=== PATIENT | female | born 1955 | race Caucasian/White ===

== ENCOUNTER 2017-12-21 14:43 | Emergency (ER) | payer OTHER ==
[2017-12-21 14:56] VITALS: BP 139/100; PULSE 54; TEMP 98; BMI 27.4
[2017-12-21] MEDS ORDERED: RANITIDINE HCL 150 MG TABLET (FP) PO ONE (15:53)
[2017-12-21] MEDS ORDERED: KETOROLAC TROMETHAMINE 60 MG/2 ML VIAL IM ONE (15:53)
--- NOTE | 2017-12-21 15:56 | PDOC ---
History of Present Illness - General Chief Complaint: Pain Stated Complaint: LEFT SIDE PAIN - History of Present Illness Initial Comments: 62-year-old female with 1 week of atraumatic lower back pain with left leg radiculopathy. She has no comorbidities. She is taking doxycycline for Lyme disease. She denies loss of bowel or bladder function or saddle paresthesia. She describes her pain is achy exacerbated with activity relieved with rest and with the above-mentioned radiation. 12/21/17 15:53 Past History - Past Medical History Allergies/Adverse Reactions: Allergies Allergy/AdvReac Type Severity Reaction Status Date / Time morphine Allergy Verified 12/21/17 15:02 Home Medications: Ambulatory Orders Cyclobenzaprine HCl [Flexeril 10 mg] 10 mg PO HS PRN #10 tablet 12/21/17 Methylprednisolone [Medrol Dose Ministerio] 4 mg PO ASDIR #21 tablet 12/21/17 Anemia: No Asthma: Yes Cancer: No Cardiac Disorders: No CVA: No COPD: No DVT: No Dementia: No GI Disorders: Yes (GASTRITIS-H. PYLORI) HTN: Yes Hypercholesterolemia: No Liver Disease: No Thyroid Disease: No Other medical history: lyme disease - Surgical History Abdominal Surgery: Yes (hernia) Appendectomy: No Cardiac Surgery: Yes (angiogram) Cholecystectomy: No Lung Surgery: No Neurologic Surgery: No Orthopedic Surgery: Yes (ROTATOR CUFF) - Suicide/Smoking/Psychosocial Hx Smoking Status: No Smoking History: Never smoked Have you smoked in the past 12 months: No Number of Cigarettes Smoked Daily: 0 Information on smoking cessation initiated: No Hx Alcohol Use: No Drug/Substance Use Hx: No Substance Use Type: None Hx Substance Use Treatment: No Review of Systems - Review of Systems Musculoskeletal: Yes: Back Pain All Other Systems: Reviewed and Negative *Physical Exam - Vital Signs Last Vital Signs Temp Pulse Resp BP Pulse Ox 98.0 F 54 L 18 139/100 100 12/21/17 14:54 12/21/17 14:54 12/21/17 14:54 12/21/17 14:54 12/21/17 14:54 - Physical Exam Comments: Lumbar spine skin color and temperature are normal. She has moderate left-sided paralumbar musculature spasm. 5 out of 5 strength in lower extremities including EHL plantar flexion and dorsiflexion. As well as hip flexion. She has a positive straight leg raise test on the left negative on the right. She has no gross sensorimotor deficits she's neurovascularly intact. 12/21/17 15:54 Medical Decision Making - Medical Decision Making Lumbar radiculopathy I'll give her a shot of Toradol and Zantac to treat her pain. An most likely discharge her on a Medrol Dosepak and Flexeril with spine surgery follow-up. No trauma I will hold off on radiograph. 12/21/17 15:55 12/21/17 16:11 Symptoms relieved with Toradol I'll give her Medrol Dosepak and Flexeril for discharge and spine surgery follow-up *DC/Admit/Observation/Transfer Diagnosis at time of Disposition: Lumbar radiculopathy - Discharge Dispostion Disposition: HOME Condition at time of disposition: Improved Decision to Admit order: No - Referrals Referrals: Geovany Ingram MD [Primary Care Provider] - Chan Priest MD [Staff Physician] - - Patient Instructions Printed Discharge Instructions: Lumbar Radiculopathy, DI for Lumbar Radiculopathy Additional Instructions: Return to the emergency room should her symptoms worsen or go unresolved. Please take the steroid pack as prescribed. It's best to start tomorrow morning. The muscle relaxer will make you tired it's one tablet before bedtime. Please follow-up with spine surgery in the next 1-2 days for further evaluation and treatment options. He may continue doxycycline and if she needs something more for pain you may take Tylenol do not take any Advil Motrin and Aleve or ibuprofen. - Post Discharge Activity
[2017-12-21] MEDS ORDERED: KETOROLAC TROMETHAMINE 60 MG/2 ML VIAL ONE (15:59)
[2017-12-21] MEDS ORDERED: RANITIDINE HCL 150 MG TABLET (FP) ONE (15:59)
== END 2017-12-21 16:19 | disposition home or self-care (01) ==
LOC: JERFT 14:43
PROC: 3E0233Z Introduction of Anti-inflammatory into Muscle, Percutaneous Approach (ICD-10-PCS; principal; 2017-12-21)
DX: M54.16 Radiculopathy, lumbar region (principal); Z87.19 Personal history of other diseases of the digestive system
CPT/HCPCS: 96372; 99281-25

== ENCOUNTER 2018-05-14 06:57 | Emergency (ER) | payer OTHER ==
--- NOTE | 2018-05-14 07:21 | PDOC ---
Attending Attestation - Resident Resident Name: Marie Roberts - ED Attending Attestation I have performed the following: I have examined & evaluated the patient, The case was reviewed & discussed with the resident, I agree w/resident's findings & plan, Exceptions are as noted - HPI HPI: 05/14/18 07:58 63y F hx of asthma, hpylori, presents with 3 days of nasal congestion, cough, muscle aches, sore throat, headache and generalized weakness. denies fevers, cp , sob/[place], abd pain, n/v, leg swelling, hemoptysis. +grandson with similar sypmtoms. no recent travel. - Physicial Exam PE: 05/14/18 09:47 GENERAL: The patient is awake, alert, and fully oriented, Nontoxic - in no acute distress. HEAD: Normocephalic, atraumatic. EYES: extraocular movements intact, sclera anicteric, conjunctiva clear. ENT: Normal voice, Moist mucous membranes. NECK: Normal range of motion, supple LUNGS: Breath sounds equal, clear to auscultation bilaterally. No wheezes, no rhonchi, no rales, inermittent paraxysms of coughing. HEART: Regular rate and rhythm, normal S1 and S2 without murmur, rub or gallop. ABDOMEN: Soft, nontender,No guarding, no rebound. No CVA tenderness EXTREMITIES: Normal range of motion, no edema. No clubbing or cyanosis. No cords, erythema, or tenderness. NEUROLOGICAL: No facial assymetry, Normal speech, moving all 4 extremities spontaneously and symmetrically PSYCH: Normal mood, normal affect. SKIN: Warm, Dry, normal turgor - Medical Decision Making 05/14/18 10:01 suspect viral syndrome no signs of pna on cxr ekg unremarkble no wheezing pt feels better with nebs xray, labs unremarkable wlil dc with pmd fu retur nprecautions were discussed I discussed the physical exam findings, ancillary test results and final diagnoses with the patient. I answered all of the patient's questions. The patient was satisfied with the care received and felt comfortable with the discharge plan and treatment plan. The patient will call their primary care physician within 24 hours to arrange follow-up and will return to the Emergency Department with any new, persistent or worsening symptoms. Heart Score/ECG Review - ECG Impressions Comment:: 05/14/18 10:02 Twelve-lead EKG was performed and reviewed by me. There is normal sinus rhythm with a rate of 58 The intervals are normal. There is normal R wave progression There are no ST or T wave abnormalities.
[2018-05-14 07:36] VITALS: BP 110/45; TEMP 98.3; BMI 27.2
[2018-05-14] MEDS ORDERED: ALBUTEROL SO4 2.5/IPRATROPIUM 0.5 INH SOL 3 ML VIAL.NEB. NEB ONE ×2 (07:43→07:51)
--- NOTE | 2018-05-14 07:47 | PDOC ---
History of Present Illness - General Chief Complaint: Respiratory Stated Complaint: SOB Time Seen by Provider: 05/14/18 07:21 History Source: Patient Exam Limitations: No Limitations - History of Present Illness Initial Comments: 05/14/18 07:46 63F with pmh of asthma, presents to the ED with constant dry cough, chills, difficulty breathing for the past 3 days. Also admits to be feeling weak, has a headache and that her muscles are aching. Did not get vaccinated for the flu as she felt sick the last time she did that. Past History - Past Medical History Allergies/Adverse Reactions: Allergies Allergy/AdvReac Type Severity Reaction Status Date / Time morphine Allergy Verified 05/14/18 07:32 Home Medications: Ambulatory Orders Albuterol 0.083% Nebulizer Anjana [Ventolin 0.083% Nebulizer Soln -] 1 amp NEB PRN #5 amp 05/14/18 Anemia: No Asthma: Yes Cancer: No Cardiac Disorders: No CVA: No COPD: No DVT: No Dementia: No GI Disorders: Yes (GASTRITIS-H. PYLORI) HTN: Yes Hypercholesterolemia: No Liver Disease: No Thyroid Disease: No - Surgical History Abdominal Surgery: Yes (hernia) Appendectomy: No Cardiac Surgery: Yes (angiogram) Cholecystectomy: No Lung Surgery: No Neurologic Surgery: No Orthopedic Surgery: Yes (ROTATOR CUFF) - Suicide/Smoking/Psychosocial Hx Smoking Status: No Smoking History: Never smoked Have you smoked in the past 12 months: No Number of Cigarettes Smoked Daily: 0 Hx Alcohol Use: No Drug/Substance Use Hx: No Substance Use Type: None Hx Substance Use Treatment: No Review of Systems - Review of Systems Able to Perform ROS?: Yes Is the patient limited Grenadian proficient: No Constitutional: Yes: Chills HEENTM: No: Symptoms Reported Respiratory: Yes: See HPI Cardiac (ROS): No: Symptoms Reported ABD/GI: No: Symptoms Reported : No: Symptoms Reported Musculoskeletal: Yes: Muscle Pain, Muscle Weakness All Other Systems: Reviewed and Negative *Physical Exam - Vital Signs Last Vital Signs Temp Pulse Resp BP Pulse Ox 98.3 F 53 L 19 110/45 L 98 05/14/18 07:32 05/14/18 07:32 05/14/18 07:32 05/14/18 07:32 05/14/18 07:32 - Physical Exam General Appearance: Yes: Nourished, Appropriately Dressed, Moderate Distress HEENT: positive: EOMI, YAEL, Normal ENT Inspection Respiratory/Chest: positive: Crackles. negative: Chest Tender, Respiratory Distress, Wheezing Cardiovascular: positive: Regular Rate, S1, S2, Bradycardia Gastrointestinal/Abdominal: positive: Normal Bowel Sounds, Flat, Soft. negative : Tender Musculoskeletal: positive: Normal Inspection. negative: CVA Tenderness Extremity: positive: Normal Capillary Refill, Normal Inspection, Normal Range of Motion Integumentary: positive: Normal Color, Dry, Warm Neurologic: positive: Fully Oriented, Alert, Normal Mood/Affect, Normal Response ED Treatment Course - LABORATORY CBC & Chemistry Diagram: 05/14/18 08:25 05/14/18 08:25 - RADIOLOGY Radiology Studies Ordered: Category Date Time Status CHEST PA & LAT [RAD] Stat Radiology 05/14/18 07:44 Ordered Medical Decision Making - Medical Decision Making 05/14/18 08:16 63F with hx of asthma and pneumonia presents with 3 days of dry cough, weakness , and muscle aches. Influenza vs pneumonia vs URI Will check basic labs for signs of infection, chest xray, flu swab to evaluate for lung consolidation and treat with Duoneb and O2 and reevaluate. 05/14/18 09:28 No acute chest pathology on xray. Less likely to be pneumonia, probably viral lower respiratory infection. 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 Will treat symptomatically. 05/14/18 09:45 Negative for flu. Felles much better after duoneb. Will send home with albuterol Rx as she has the nebulizer machine *DC/Admit/Observation/Transfer Diagnosis at time of Disposition: Viral respiratory illness, Viral URI with cough - Discharge Dispostion Disposition: HOME Condition at time of disposition: Improved Decision to Admit order: No - Prescriptions Prescriptions: Albuterol 0.083% Nebulizer Anjana [Ventolin 0.083% Nebulizer Soln -] 1 amp NEB PRN #5 amp - Referrals Referrals: Geovany Ingram MD [Primary Care Provider] - - Patient Instructions Printed Discharge Instructions: DI for Viral Upper Respiratory Infection -- Adult Additional Instructions: 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 Come back to the ER for any new, worsening or concerning symptoms such as fever or difficulty breathing. - Post Discharge Activity
[2018-05-14] MEDS ORDERED: IBUPROFEN 600 MG TABLET (FP) PO ONE ×2 (08:25→08:34)
[2018-05-14 08:34] LABS: BASO % 0.8 % (0-2.0); EOS % 1.3 % (0-4.5); HEMATOCRIT 41.2 % (32.4-45.2); HEMOGLOBIN 13.4 GM/dL (10.7-15.3); LYMPH % 9.9 % (8-40); MCH 30.2 pg (25.7-33.7); MCHC 32.4 g/dl (32.0-36.0); MEAN CELL VOLUME 93.1 fl (80-96); MONO % 6.3 % (3.8-10.2); NEUT % 81.7 % (42.8-82.8); PLATELET COUNT 172 K/MM3 (134-434); RBC 4.43 M/mm3 (3.60-5.2); RDW 13.4 % (11.6-15.6); WHITE BLOOD COUNT 8.9 K/mm3 (4.0-10.0)
[2018-05-14 09:19] LABS: ALBUMIN 3.7 g/dl (3.4-5.0); ALK PHOS 84 U/L (45-117); ANION GAP 6 MMOL/L (8-16); BILIRUBIN,TOTAL 0.5 mg/dL (0.2-1); BLOOD UREA NITROGEN 11 mg/dL (7-18); CALCIUM 10.8 mg/dL (8.5-10.1); CHLORIDE 106 mmol/L (98-107); CO2 27 mmol/L (21-32); CREATININE 0.7 mg/dL (0.55-1.3); GLUCOSE,RANDOM 85 mg/dL (74-106); POTASSIUM 3.9 mmol/L (3.5-5.1); SGOT/AST 12 U/L (15-37); SGPT/ALT 22 U/L (13-61); SODIUM 139 mmol/L (136-145); TOT PROT 6.9 g/dl (6.4-8.2)
[2018-05-14 09:57] VITALS: PULSE 60
--- NOTE | 2018-05-17 23:49 | EKG ---
Test Reason : Blood Pressure : / mmHG Vent. Rate : 058 BPM Atrial Rate : 058 BPM P-R Int : 166 ms QRS Dur : 104 ms QT Int : 392 ms P-R-T Axes : 015 -11 034 degrees QTc Int : 384 ms SINUS BRADYCARDIA MINIMAL VOLTAGE CRITERIA FOR LVH, MAY BE NORMAL VARIANT NONSPECIFIC T WAVE ABNORMALITY ABNORMAL ECG WHEN COMPARED WITH ECG OF 09-MAY-2016 19:43, VENT. RATE HAS DECREASED BY 28 BPM T WAVE VARIATION Confirmed by JOSE SERRATO MD ([id number]) on 05/17/2018 11:49:27 PM Referred By: Confirmed By:JOSE SERRATO MD
== END 2018-05-14 09:57 | disposition home or self-care (01) ==
LOC: JER 06:57
PROC: 3E0F7GC Introduction of Other Therapeutic Substance into Respiratory Tract, Via Natural or Artificial Opening (ICD-10-PCS; principal; 2018-05-14)
DX: J06.9 Acute upper respiratory infection, unspecified (principal); B97.89 Other viral agents as the cause of diseases classified elsewhere; R05 Cough; I10 Essential (primary) hypertension; K29.70 Gastritis, unspecified, without bleeding
CPT/HCPCS: 36415; 71046-TC-FY; 80053; 85025; 87804; 93005; 93010; 94640; 99282-25

== ENCOUNTER 2018-07-07 18:03 | Inpatient (IN) | payer OTHER ==
[2018-07-07 19:12] LABS: BASO % 0.5 % (0-2.0); HEMOGLOBIN 13.5 GM/dL (10.7-15.3); LYMPH % 7.7 % (8-40); MCH 31.8 pg (25.7-33.7); MCHC 34.7 g/dl (32.0-36.0); MEAN CELL VOLUME 91.5 fl (80-96); MONO % 10.4 % (3.8-10.2); NEUT % 81.4 % (42.8-82.8); PLATELET COUNT 200 K/MM3 (134-434); RBC 4.26 M/mm3 (3.60-5.2); RDW 13.6 % (11.6-15.6); WHITE BLOOD COUNT 5.9 K/mm3 (4.0-10.0)
[2018-07-07] MEDS ORDERED: ALBUTEROL SO4 2.5/IPRATROPIUM 0.5 INH SOL 3 ML VIAL.NEB. NEB ONE (19:19)
[2018-07-07] MEDS ORDERED: ACETAMINOPHEN 1000 MG/100 ML VIAL (NON FORMULARY) IVPB ONE (19:19)
[2018-07-07] MEDS ORDERED: SODIUM CHLORIDE 1,000 ML IV STA ×2 (19:25→21:55)
--- NOTE | 2018-07-07 19:38 | PDOC ---
Attending Attestation - HPI HPI: 07/07/18 19:42 The patient is a 63 year old female with a significant past medical history of asthma, hypertension and H.pylori who presents to the emergency department with a cough and fever for 2 days. She reports some associated chest pain with her cough as well as shortness of breath. The patient reports that she recently traveled to [place] for 2 weeks by which she was exposed to several sick contacts at her home. The patient reports that she got back from [place] today. She states that her cough and SOB began prior to her flight.The patient denies any other symptoms. She denies any chills, nausea, vomiting, diarrhea, constipation or urinary symptoms. She denies any headache or dizziness. The patient denies any other complaints. Documentation prepared by Zack Chairez, acting as medical registrar for Rancho Escalante MD. <Zack Chairez - Last Filed: 07/07/18 19:42> - Resident Resident Name: Marco Moid - ED Attending Attestation I have performed the following: I have examined & evaluated the patient, The case was reviewed & discussed with the resident, I agree w/resident's findings & plan, Exceptions are as noted - Physicial Exam PE: 07/08/18 05:05 Agree with exam as documented by resident - Medical Decision Making 07/08/18 05:21 Cough, fever, flu+ cxr w/o infiltrates fluid responsive admit for further care <Rancho Escalante - Last Filed: 07/08/18 05:22>
--- NOTE | 2018-07-07 19:40 | PDOC ---
History of Present Illness - General Chief Complaint: Respiratory Stated Complaint: COLD SYMPTOMS Time Seen by Provider: 07/07/18 19:07 History Source: Patient Exam Limitations: No Limitations - History of Present Illness Initial Comments: 07/07/18 19:34 Patient is 63F with history of asthma here today complaining of 2 days of fever , cough, shortness of breath and pleuritic chest pain. Patient states that she returned from [place] today, and had multiple sick contacts in [place]. Denies leg swelling, recent surgery, history of blood clots. No flu shot this year. No abdominal pain, nausea, vomiting. Patient endorses body aches and rhinorrhea. Past History - Past Medical History Allergies/Adverse Reactions: Allergies Allergy/AdvReac Type Severity Reaction Status Date / Time morphine Allergy Verified 07/07/18 18:20 Home Medications: Ambulatory Orders Albuterol 0.083% Nebulizer Anjana [Ventolin 0.083% Nebulizer Soln -] 1 amp NEB PRN #5 amp 05/14/18 Anemia: No Asthma: Yes Cancer: No Cardiac Disorders: No CVA: No COPD: No DVT: No Dementia: No GI Disorders: Yes (GASTRITIS-H. PYLORI) HTN: Yes Hypercholesterolemia: No Liver Disease: No Thyroid Disease: No - Surgical History Abdominal Surgery: Yes (hernia) Appendectomy: No Cardiac Surgery: Yes (angiogram) Cholecystectomy: No Lung Surgery: No Neurologic Surgery: No Orthopedic Surgery: Yes (ROTATOR CUFF) - Suicide/Smoking/Psychosocial Hx Smoking Status: No Smoking History: Unknown if ever smoked Have you smoked in the past 12 months: No Number of Cigarettes Smoked Daily: 0 Hx Alcohol Use: No Drug/Substance Use Hx: No Substance Use Type: None Hx Substance Use Treatment: No Review of Systems - Review of Systems Comments:: 07/07/18 19:38 GENERAL/CONSTITUTIONAL: +fever +chills. No weakness. HEAD, EYES, EARS, NOSE AND THROAT: No change in vision. No sore throat. CARDIOVASCULAR: +chest pain +shortness of breath RESPIRATORY: +cough, no wheezing, or hemoptysis. GASTROINTESTINAL: No nausea, vomiting, diarrhea or constipation. GENITOURINARY: No dysuria, frequency, or change in urination. MUSCULOSKELETAL: +bodyaches. No neck or back pain. SKIN: No rash NEUROLOGIC: No headache, vertigo, loss of consciousness, or change in strength/ sensation. HEMATOLOGIC/LYMPHATIC: No anemia, easy bleeding, or history of blood clots. ALLERGIC/IMMUNOLOGIC: No hives or skin allergy. *Physical Exam - Vital Signs Last Vital Signs Temp Pulse Resp BP Pulse Ox 102.6 F H 100 H 26 H 130/70 100 07/07/18 18:20 07/07/18 18:20 07/07/18 18:20 07/07/18 18:20 07/07/18 18:20 - Physical Exam Comments: 07/07/18 19:39 GENERAL: Awake, alert, and fully oriented, in no acute distress HEAD: No signs of trauma, normocephalic, atraumatic EYES: PERRLA, EOMI, sclera anicteric, conjunctiva clear ENT: Auricles normal inspection, hearing grossly normal, nares patent, oropharynx clear without exudates. Moist mucosa NECK: Normal ROM, supple, no lymphadenopathy, JVD, or masses LUNGS: No distress, speaks full sentences, coarse breath sounds bilaterally HEART: Tachycardic normal S1 and S2, no murmurs, rubs or gallops, peripheral pulses normal and equal bilaterally. ABDOMEN: Soft, nontender, normoactive bowel sounds. No guarding, no rebound. No masses EXTREMITIES: Normal inspection, Normal range of motion, no edema. No clubbing or cyanosis. NEUROLOGICAL: Cranial nerves II through XII grossly intact. Normal speech, no focal sensorimotor deficits SKIN: Warm, Dry, normal turgor, no rashes or lesions noted. Moderate Sedation - Procedure Monitoring Vital Signs: Procedure Monitoring Vital Signs Temperature 102.6 F H 07/07/18 18:20 Pulse Rate 100 H 07/07/18 18:20 Respiratory Rate 26 H 07/07/18 18:20 Blood Pressure 130/70 07/07/18 18:20 O2 Sat by Pulse Oximetry (%) 100 07/07/18 18:20 ED Treatment Course - LABORATORY CBC & Chemistry Diagram: 07/07/18 19:00 07/07/18 19:00 - ADDITIONAL ORDERS Additional order review: 07/07/18 19:00 RBC 4.26 MCV 91.5 MCHC 34.7 RDW 13.6 MPV 9.0 Neutrophils % 81.4 Lymphocytes % 7.7 L D Monocytes % 10.4 H Eosinophils % 0.0 D Basophils % 0.5 - RADIOLOGY Radiology Studies Ordered: Category Date Time Status CHEST X-RAY PORTABLE* [RAD] Stat Radiology 07/07/18 19:17 Ordered Medical Decision Making - Medical Decision Making 07/07/18 19:40 Patient is 63F with history of asthma here today with cough, shortness of breath , fever, chest pain. Vital signs notable for tachycardia, fever, tachypnea. Coarse lung sounds on exam bilaterally. DDx includes, but is not limited to: pneumonia, influenza, viral uri. Septic workup initiated. Likely admission. Given tylenol, fluids. 07/07/18 22:01 Flu positive. CBC normal. CMP normal. Trop undetectable. Lactate normal. CXR shows no clear infiltrate. Patient's BP shows map of 63, had not received first liter of fluids due to patient's arm position. Second line started. Will fluid resuscitated. Still febrile, will give motrin. Will cover with azithro and ceftriaxone given hypotension. Will admit. 07/07/18 22:40 BP shows MAP of [address] Edwards accepting for Dr Rockwell to med/surg. 07/07/18 23:45 EKG shows NSR with rate of 84. No st elevations/depressions. Normal axis. Normal intervals. No significant t wave abnormalities. *DC/Admit/Observation/Transfer Diagnosis at time of Disposition: Pneumonia and influenza - Discharge Dispostion Condition at time of disposition: Stable Decision to Admit order: Yes - Referrals - Patient Instructions - Post Discharge Activity
[2018-07-07 19:45] LABS: VENOUS PC02 38.3 mmHg (38-52); VENOUS PH 7.44 (7.32-7.42); VENOUS PO2 24.1 mmHg (28-48)
[2018-07-07 19:58] LABS: ACTIVATED PTT 23.6 SECONDS (25.2-36.5); INR 1.09 (0.83-1.09); PROTHROMBIN TIME (PATIENT) 12.9 SEC (9.7-13.0)
[2018-07-07 20:07] LABS: ALBUMIN 3.9 g/dl (3.4-5.0); ALK PHOS 102 U/L (45-117); ANION GAP 10 MMOL/L (8-16); BILIRUBIN,TOTAL 0.3 mg/dL (0.2-1); BLOOD UREA NITROGEN 13 mg/dL (7-18); CHLORIDE 104 mmol/L (98-107); CO2 25 mmol/L (21-32); CREATININE 0.8 mg/dL (0.55-1.3); GLUCOSE,RANDOM 81 mg/dL (74-106); SGOT/AST 37 U/L (15-37); SGPT/ALT 51 U/L (13-61); SODIUM 138 mmol/L (136-145); TOT PROT 7.3 g/dl (6.4-8.2)
[2018-07-07] MEDS ORDERED: ACETAMINOPHEN INJECTION 100 ML IVPB ONE (20:17)
[2018-07-07] MEDS ORDERED: OSELTAMIVIR PHOSPHATE 75 MG CAPSULE PO ONE (21:31)
[2018-07-07] MEDS ORDERED: IBUPROFEN 600 MG TABLET (FP) PO ONE (21:55)
[2018-07-07] MEDS ORDERED: AZITHROMYCIN IVPB 500 MG in DEXTROSE 5%-WATER - 250 ML IVPB ONE (21:59)
[2018-07-07] MEDS ORDERED: CEFTRIAXONE 1,000 MG in DEXTROSE 5%-WATER - 50 ML IVPB ONE (21:59)
--- NOTE | 2018-07-07 23:02 | PN ---
Teaching Attending Note Name of Resident: Toro Edwards ATTENDING PHYSICIAN STATEMENT I saw and evaluated the patient. I reviewed the resident's note and discussed the case with the resident. I agree with the resident's findings and plan as documented. SUBJECTIVE: OBJECTIVE: ASSESSMENT AND PLAN:
--- NOTE | 2018-07-07 23:03 | HP ---
CHIEF COMPLAINT: PCP: HISTORY OF PRESENT ILLNESS: ER course was notable for: (1) (2) (3) Recent Travel: PAST MEDICAL HISTORY: PAST SURGICAL HISTORY: Social History: Smoking: Alcohol: Drugs: Family History: Allergies morphine Allergy (Verified 07/07/18 18:20) HOME MEDICATIONS: Home Medications Medication Instructions Recorded Albuterol 0.083% Nebulizer Anjana 1 amp NEB PRN #5 amp 05/14/18 [Ventolin 0.083% Nebulizer Soln -] REVIEW OF SYSTEMS CONSTITUTIONAL: Absent: fever, chills, diaphoresis, generalized weakness, malaise, loss of appetite, weight change HEENT: Absent: rhinorrhea, nasal congestion, throat pain, throat swelling, difficulty swallowing, mouth swelling, ear pain, eye pain, visual changes CARDIOVASCULAR: Absent: chest pain, syncope, palpitations, irregular heart rate, lightheadedness , peripheral edema RESPIRATORY: Absent: cough, shortness of breath, dyspnea with exertion, orthopnea, wheezing, stridor, hemoptysis GASTROINTESTINAL: Absent: abdominal pain, abdominal distension, nausea, vomiting, diarrhea, constipation, melena, hematochezia GENITOURINARY: Absent: dysuria, frequency, urgency, hesitancy, hematuria, flank pain, genital pain MUSCULOSKELETAL: Absent: myalgia, arthralgia, joint swelling, back pain, neck pain SKIN: Absent: rash, itching, pallor HEMATOLOGIC/IMMUNOLOGIC: Absent: easy bleeding, easy bruising, lymphadenopathy, frequent infections ENDOCRINE: Absent: unexplained weight gain, unexplained weight loss, heat intolerance, cold intolerance NEUROLOGIC: Absent: headache, focal weakness or paresthesias, dizziness, unsteady gait, seizure, mental status changes, bladder or bowel incontinence PSYCHIATRIC: Absent: anxiety, depression, suicidal or homicidal ideation, hallucinations. PHYSICAL EXAMINATION Vital Signs - 24 hr 07/07/18 18:20 Temperature 102.6 F H Pulse Rate 100 H Respiratory 26 H Rate Blood Pressure 130/70 O2 Sat by Pulse 100 Oximetry (%) GENERAL: Awake, alert, and fully oriented, in no acute distress. HEAD: Normal with no signs of trauma. EYES: Pupils equal, round and reactive to light, extraocular movements intact, sclera anicteric, conjunctiva clear. No lid lag. EARS, NOSE, THROAT: Ears normal, nares patent, oropharynx clear without exudates. Moist mucous membranes. NECK: Normal range of motion, supple without lymphadenopathy, JVD, or masses. LUNGS: Breath sounds equal, clear to auscultation bilaterally. No wheezes, and no crackles. No accessory muscle use. HEART: Regular rate and rhythm, normal S1 and S2 without murmur, rub or gallop. ABDOMEN: Soft, nontender, not distended, normoactive bowel sounds, no guarding, no rebound, no masses. No hepatomegaly or splenomegaly. MUSCULOSKELETAL: Normal range of motion at all joints. No bony deformities or tenderness. No CVA tenderness. UPPER EXTREMITIES: 2+ pulses, warm, well-perfused. No cyanosis. No clubbing. No peripheral edema. LOWER EXTREMITIES: 2+ pulses, warm, well-perfused. No calf tenderness. No peripheral edema. NEUROLOGICAL: Cranial nerves II-XII intact. Normal speech. Normal gait. PSYCHIATRIC: Cooperative. Good eye contact. Appropriate mood and affect. SKIN: Warm, dry, normal turgor, no rashes or lesions noted, normal capillary refill. Laboratory Results - last 24 hr 07/07/18 07/07/18 07/07/18 19:00 19:00 19:26 WBC 5.9 RBC 4.26 Hgb 13.5 Hct 39.0 MCV 91.5 MCH 31.8 MCHC 34.7 RDW 13.6 Plt Count 200 MPV 9.0 Absolute Neuts (auto) 4.8 Neutrophils % 81.4 Lymphocytes % 7.7 L D Monocytes % 10.4 H Eosinophils % 0.0 D Basophils % 0.5 Nucleated RBC % 0 PT with INR 12.90 INR 1.09 PTT (Actin FS) 23.6 L VBG pH POC VBG pCO2 POC VBG pO2 Mixed VBG HCO3 Sodium 138 Potassium 4.0 Chloride 104 Carbon Dioxide 25 Anion Gap 10 BUN 13 Creatinine 0.8 Creat Clearance w eGFR > 60 Random Glucose 81 Lactic Acid Calcium 11.0 H Total Bilirubin 0.3 AST 37 ALT 51 Alkaline Phosphatase 102 Total Protein 7.3 Albumin 3.9 Influenza A (Rapid) Influenza B (Rapid) 07/07/18 07/07/18 07/07/18 19:26 19:32 19:32 WBC RBC Hgb Hct MCV MCH MCHC RDW Plt Count MPV Absolute Neuts (auto) Neutrophils % Lymphocytes % Monocytes % Eosinophils % Basophils % Nucleated RBC % PT with INR INR PTT (Actin FS) VBG pH 7.44 H POC VBG pCO2 38.3 POC VBG pO2 24.1 L Mixed VBG HCO3 25.6 H Sodium Potassium Chloride Carbon Dioxide Anion Gap BUN Creatinine Creat Clearance w eGFR Random Glucose Lactic Acid 1.1 Calcium Total Bilirubin AST ALT Alkaline Phosphatase Total Protein Albumin Influenza A (Rapid) Positive A Influenza B (Rapid) Negative ASSESSMENT/PLAN:
--- NOTE | 2018-07-07 23:23 | PN ---
Teaching Attending Note Name of Resident: Toro Edwards ATTENDING PHYSICIAN STATEMENT I saw and evaluated the patient. I reviewed the resident's note and discussed the case with the resident. I agree with the resident's findings and plan as documented. SUBJECTIVE: Seen and examined; please see resident note for further historical information. Briefly, she presents with cough/fever/SOB and is found to be influenza positive in the ER. No WBC or signs of pneumonia on CXR. Saturating 100% on RA. She developed productive cough and subjective SOB for 2 days. Recently went to [place]. Used albuterol at home which somewhat helped at home; no inhaled steroids or recent PFTs. Endorsed mild dysuria as well in ER. Never required O2. No s/s DVT, etc. Got several tx, got steroids, abx, tamiflu, fluid in the ER. 10 sys ROS done and negative aside from HPI PMH and PSH reviewed (HTN, Asthma, Gastritis) FH asked and noncontributory Social hx reviewed Medication list reviewed; reconciliation pending OBJECTIVE: VS, labs, imaging reviewed NAD, AAO, resting in bed NC AT EOMI PERRLA RRR s1/2 no mgr NT ND +BS Lungs with scattered b/l wheezes but good air movement, w/ sym exp CN2-12 wnl, no fnd Labs unremarkable; negative lactate. VBG reviewed. Positive influenza A EKG reviewed CXR without any flo acute disease ASSESSMENT AND PLAN: Patient presents with SOB/Cough/fever found to be flu positive 1) Acute Influenza A Infection -BID Tamiflu, 1L IVF@100cc/hr overnight, monitor clinically -Likely DC in AM. No white count or s/s superinfection, 100% O2 on RA. 2) Asthma with ?Exacerbation -Checking peak flows; 5 day prednisone burst as acute infection could have triggered reactive airways. -Incentive tonio when awake -PRN Albuterol 3) Dysuria -Checking UA; treat if +infection 4) Hypercalcemia -Chronic; she tells us that she has an upcoming appointment to remove her parathyroid glands. Followup Ca and keep OP fu. FENA -LR@100 overnight -PRN replete -Regular diet -As tolerated Full Code
[2018-07-07] MEDS ORDERED: IBUPROFEN 400 MG TABLET (FP) PO ONE (23:30)
[2018-07-07] MEDS ORDERED: CEFTRIAXONE 1 GM/50 ML BAG ONE (23:30)
[2018-07-07] MEDS ORDERED: OSELTAMIVIR PHOSPHATE 75 MG CAPSULE ONE (23:32)
[2018-07-08] MEDS ORDERED: AZITHROMYCIN IVPB 500 MG/250 ML BAG IVPB ONE (00:37)
[2018-07-08] MEDS: LACTATED RINGERS SOLUTION 1,000 ML IV SCH ×3 (00:59→20:57)
[2018-07-08 01:07] LABS: URINE APPEARANCE CLEAR; URINE BILIRUBIN NEGATIVE (<2.0 mg/dL); URINE COLOR LTYELLOW; URINE GLUCOSE (UA) NEGATIVE (NEGATIVE); URINE KETONE 1+ (NEGATIVE); URINE LEUK ESTERASE NEGATIVE (NEGATIVE); URINE NITRITE NEGATIVE (NEGATIVE); URINE PROTEIN NEGATIVE (NEGATIVE); URINE UROBILINOGEN NEGATIVE mg/dL (0.2-1.0)
--- NOTE | 2018-07-08 01:45 | HP ---
CHIEF COMPLAINT: PCP: HISTORY OF PRESENT ILLNESS: 63 yo F PMH HTN, asthma, H.pylori? p/w 2 days of fever, yellow productive cough w/ brown spots, SOB and pleuritic chest pain w/ the cough. Patient states she recently traveled to [place] for 2 weeks and that she returned from [place] today, and had multiple sick contacts in [place]. Multpile family members w/ cough fever/flu like sxs. She states that her cough and SOB began prior to her flight. Pt took some albuterol which helped a little. Denies leg swelling, recent surgery, history of blood clots. No flu shot this year. No abdominal pain, nausea, vomiting. Patient endorses mild MOSS, body aches and rhinorrhea and 1 episode of non bloody diarrhea. In [place] was exposed to cats, dogs, sakes, mice, and got bit by mosquito Ate pork rice beans. did not get flu shot ER course was notable for: (1)CBC normal. CMP normal. Trop undetectable. Lactate normal. Flu positive (2)EKG shows NSR with rate of 84. No st elevations/depressions. Normal axis. Normal intervals. No significant t wave abnormalities. (3) CTX, Azithro, motrin, tamiflu, 1L NS Recent Travel: see hpi PAST MEDICAL HISTORY: Last egd/colonoscopy 2017 - per pt was nl, showed abd hernia Asthma hx - no ICU admissions or intubations PAST SURGICAL HISTORY: Social History: Smoking: denies Alcohol:denies Drugs: denies Family History: Mom colon cancer 81 yo Allergies morphine Allergy (Verified 07/07/18 18:20) HOME MEDICATIONS: [facility] Home Medications Medication Instructions Recorded Albuterol 0.083% Nebulizer Anjana 1 amp NEB PRN #5 amp 05/14/18 [Ventolin 0.083% Nebulizer Soln -] REVIEW OF SYSTEMS per hpi PHYSICAL EXAMINATION Vital Signs - 24 hr 07/07/18 07/07/18 07/07/18 18:20 21:30 21:57 Temperature 102.6 F H 100.2 F H Pulse Rate 100 H Pulse Rate [ 91 H 90 Right Radial] Respiratory 26 H 21 H Rate Blood Pressure 130/70 Blood Pressure 85/44 L 90/52 L [Right Arm] O2 Sat by Pulse 100 100 Oximetry (%) 07/07/18 07/07/1819 23:00 23:47 01:37 Temperature 99.8 F H 99.0 F 99.1 F Pulse Rate Pulse Rate [ 92 H 89 88 Right Radial] Respiratory 22 H 22 H 18 Rate Blood Pressure Blood Pressure 101/56 L 103/55 L 109/68 [Right Arm] O2 Sat by Pulse 100 100 100 Oximetry (%) GENERAL: AOX3 mild distress, coughing up sputum HEAD: Normal with no signs of trauma. EYES: extraocular movements intact, sclera anicteric, conjunctiva clear. No lid lag. EARS, NOSE, THROAT: nares patent, oropharynx clear without exudates. Moist mucous membranes. NECK: Normal range of motion, supple without lymphadenopathy, JVD, or masses. LUNGS: scattered b/l wheezes but good air movement HEART: RRR, normal S1 and S2 without murmur, rub or gallop. ABDOMEN: Soft,NTND, normoactive bowel sounds, no guarding, no rebound, no masses. MUSCULOSKELETAL: Normal range of motion at all joints. No bony deformities or tenderness. UPPER EXTREMITIES: 2+ pulses, warm, well-perfused. No cyanosis. No clubbing. No peripheral edema. LOWER EXTREMITIES: 2+ pulses, warm, well-perfused. No calf tenderness. No peripheral edema. NEUROLOGICAL: Cranial nerves II-XII intact. Normal speech. PSYCHIATRIC: Cooperative. Good eye contact. Appropriate mood and affect. SKIN: Warm, dry, normal turgor, no rashes or lesions noted, normal capillary refill. Laboratory Results - last 24 hr 07/07/18 07/07/18 07/07/18 19:00 19:00 19:26 WBC 5.9 RBC 4.26 Hgb 13.5 Hct 39.0 MCV 91.5 MCH 31.8 MCHC 34.7 RDW 13.6 Plt Count 200 MPV 9.0 Absolute Neuts (auto) 4.8 Neutrophils % 81.4 Lymphocytes % 7.7 L D Monocytes % 10.4 H Eosinophils % 0.0 D Basophils % 0.5 Nucleated RBC % 0 PT with INR 12.90 INR 1.09 PTT (Actin FS) 23.6 L VBG pH POC VBG pCO2 POC VBG pO2 Mixed VBG HCO3 Sodium 138 Potassium 4.0 Chloride 104 Carbon Dioxide 25 Anion Gap 10 BUN 13 Creatinine 0.8 Creat Clearance w eGFR > 60 Random Glucose 81 Lactic Acid Calcium 11.0 H Total Bilirubin 0.3 AST 37 ALT 51 Alkaline Phosphatase 102 Troponin I < 0.02 Total Protein 7.3 Albumin 3.9 Urine Color Urine Appearance Urine pH Ur Specific [place] Urine Protein Urine Glucose (UA) Urine Ketones Urine Blood Urine Nitrite Urine Bilirubin Urine Urobilinogen Ur Leukocyte Esterase Influenza A (Rapid) Influenza B (Rapid) 07/07/18 07/07/18 07/07/18 19:26 19:32 19:32 WBC RBC Hgb Hct MCV MCH MCHC RDW Plt Count MPV Absolute Neuts (auto) Neutrophils % Lymphocytes % Monocytes % Eosinophils % Basophils % Nucleated RBC % PT with INR INR PTT (Actin FS) VBG pH 7.44 H POC VBG pCO2 38.3 POC VBG pO2 24.1 L Mixed VBG HCO3 25.6 H Sodium Potassium Chloride Carbon Dioxide Anion Gap BUN Creatinine Creat Clearance w eGFR Random Glucose Lactic Acid 1.1 Calcium Total Bilirubin AST ALT Alkaline Phosphatase Troponin I Total Protein Albumin Urine Color Urine Appearance Urine pH Ur Specific [place] Urine Protein Urine Glucose (UA) Urine Ketones Urine Blood Urine Nitrite Urine Bilirubin Urine Urobilinogen Ur Leukocyte Esterase Influenza A (Rapid) Positive A Influenza B (Rapid) Negative 07/08/18 00:41 WBC RBC Hgb Hct MCV MCH MCHC RDW Plt Count MPV Absolute Neuts (auto) Neutrophils % Lymphocytes % Monocytes % Eosinophils % Basophils % Nucleated RBC % PT with INR INR PTT (Actin FS) VBG pH POC VBG pCO2 POC VBG pO2 Mixed VBG HCO3 Sodium Potassium Chloride Carbon Dioxide Anion Gap BUN Creatinine Creat Clearance w eGFR Random Glucose Lactic Acid Calcium Total Bilirubin AST ALT Alkaline Phosphatase Troponin I Total Protein Albumin Urine Color Ltyellow Urine Appearance Clear Urine pH 6.0 Ur Specific [place] 1.013 Urine Protein Negative Urine Glucose (UA) Negative Urine Ketones 1+ H Urine Blood Negative Urine Nitrite Negative Urine Bilirubin Negative Urine Urobilinogen Negative Ur Leukocyte Esterase Negative Influenza A (Rapid) Influenza B (Rapid) ASSESSMENT/PLAN: 63 yo F PMH HTN, asthma, H.pylori? p/w 2 days of fever, yellow productive cough w/ brown spots, SOB and pleuritic chest pain. Sepsis 2/2 Influenza A Infection - febrile tachycardia, flu like sxs. flu A pos. No white count CXR wnl s/p CTX, Azithro, motrin, tamiflu, 1L NSn ED Tamiflu 75 BID LR 100cc/hr overnight f/u CT chest Asthma - Exacerbation? pt may be having airway rexn/exacerbation to flu infx Check peak flows 5 day prednisone Incentive spirometry Albuterol PRN c/w home dose singulair Dysuria UA neg cont to monitor Hypercalcemia - Chronic issue per pt, has upcoming appointment to remove her parathyroid glands. f/u outpt FENA LR@100cc, transition to PO in the AM replete prn Na ctl diet As tolerated Full Code Dispo medsurg Visit type - Emergency Visit Emergency Visit: Yes ED Registration Date: 07/07/18 Care time: The patient presented to the Emergency Department on the above date and was hospitalized for further evaluation of their emergent condition. - New Patient This patient is new to me today: Yes Date on this admission: 07/08/18 - Critical Care Critical Care patient: No
[2018-07-08 03:14] VITALS: BMI 27.1
[2018-07-08 06:55] LABS: BASO % 0.6 % (0-2.0); HEMATOCRIT 37.5 % (32.4-45.2); HEMOGLOBIN 12.1 GM/dL (10.7-15.3); LYMPH % 20.4 % (8-40); MCHC 32.2 g/dl (32.0-36.0); MEAN CELL VOLUME 93.2 fl (80-96); MEAN PLT VOLUME 8.6 fl (7.5-11.1); MONO % 13.3 % (3.8-10.2); NEUT % 65.7 % (42.8-82.8); PLATELET COUNT 160 K/MM3 (134-434); RBC 4.02 M/mm3 (3.60-5.2); RDW 13.7 % (11.6-15.6); WHITE BLOOD COUNT 4.4 K/mm3 (4.0-10.0)
[2018-07-08 07:50] LABS: ALBUMIN 2.9 g/dl (3.4-5.0); ALK PHOS 77 U/L (45-117); ANION GAP 9 MMOL/L (8-16); BILIRUBIN,TOTAL 0.3 mg/dL (0.2-1); BLOOD UREA NITROGEN 14 mg/dL (7-18); CALCIUM 9.8 mg/dL (8.5-10.1); CHLORIDE 109 mmol/L (98-107); CO2 22 mmol/L (21-32); CREATININE 0.6 mg/dL (0.55-1.3); GLUCOSE,RANDOM 66 mg/dL (74-106); MAGNESIUM 2.4 mg/dL (1.8-2.4); POTASSIUM 3.7 mmol/L (3.5-5.1); SGOT/AST 29 U/L (15-37); SGPT/ALT 39 U/L (13-61); SODIUM 140 mmol/L (136-145); TOT PROT 5.6 g/dl (6.4-8.2)
[2018-07-08] MEDS: ACETAMINOPHEN 325 MG TABLET (FP) PO PRN ×2 (07:54→13:15)
[2018-07-08] MEDS: ENOXAPARIN NA (PORCINE) 40 MG/0.4 ML DISP.SYRIN SQ SCH (09:35)
[2018-07-08] MEDS: OSELTAMIVIR PHOSPHATE 75 MG CAPSULE PO SCH ×3 (09:35→21:00)
[2018-07-08] MEDS ORDERED: predniSONE 20 MG TABLET (UD) PO SCH (10:00)
--- NOTE | 2018-07-08 11:57 | PN ---
Progress Note (short form) - Note Progress Note: Events noted Coughing- dry+ SOB+ pain in chest +generalized no abd pain appetite is "ok" Vital Signs - 24 hr 07/07/18 07/07/18 07/07/18 18:20 21:30 21:57 Temperature 102.6 F H 100.2 F H Pulse Rate 100 H Pulse Rate [ 91 H 90 Right Radial] Respiratory 26 H 21 H Rate Blood Pressure 130/70 Blood Pressure 85/44 L 90/52 L [Right Arm] O2 Sat by Pulse 100 100 Oximetry (%) 07/07/18 07/07/18 07/08/18 23:00 23:47 01:37 Temperature 99.8 F H 99.0 F 99.1 F Pulse Rate Pulse Rate [ 92 H 89 88 Right Radial] Respiratory 22 H 22 H 18 Rate Blood Pressure Blood Pressure 101/56 L 103/55 L 109/68 [Right Arm] O2 Sat by Pulse 100 100 100 Oximetry (%) 07/08/18 07/08/18 07/08/18 02:47 03:14 06:00 Temperature 98.3 F 98.4 F Pulse Rate 70 68 Pulse Rate [ Right Radial] Respiratory 18 20 18 Rate Blood Pressure 128/54 L 126/54 L Blood Pressure [Right Arm] O2 Sat by Pulse 98 Oximetry (%) Current Medications Generic Name Dose Route Start Last Admin Trade Name Freq PRN Reason Stop Dose Admin Acetaminophen 650 mg 07/07/18 23:47 07/08/18 07:54 Tylenol - PO 650 mg Q4H PRN Administration FEVER Albuterol Sulfate 1 amp 07/07/18 23:47 Ventolin 0.083% Nebulizer Soln - NEB Q4H PRN SHORT OF BREATH/WHEEZING Enoxaparin Sodium 40 mg 07/08/18 10:00 07/08/18 09:35 Lovenox - SQ 40 mg DAILY CHARLEY Administration Lactated Ringer's 1,000 mls @ 100 mls/hr 07/07/18 23:45 07/08/18 00:59 Lactated Ringers Solution IV 100 mls/hr ASDIR CHARLEY Administration Montelukast Sodium 10 mg 07/08/18 22:00 Singulair - PO HS CHARLEY Oseltamivir Phosphate 75 mg 07/08/18 10:00 07/08/18 09:35 Tamiflu - PO 07/13/18 09:59 75 mg BID CHARLEY Administration Prednisone 60 mg 07/08/18 10:00 07/08/18 09:35 Deltasone - PO 60 mg DAILY CHARLEY Administration Laboratory Results - last 24 hr 07/07/18 07/07/18 07/07/18 19:00 19:00 19:26 WBC 5.9 RBC 4.26 Hgb 13.5 Hct 39.0 MCV 91.5 MCH 31.8 MCHC 34.7 RDW 13.6 Plt Count 200 MPV 9.0 Absolute Neuts (auto) 4.8 Neutrophils % 81.4 Lymphocytes % 7.7 L D Monocytes % 10.4 H Eosinophils % 0.0 D Basophils % 0.5 Nucleated RBC % 0 PT with INR 12.90 INR 1.09 PTT (Actin FS) 23.6 L VBG pH POC VBG pCO2 POC VBG pO2 Mixed VBG HCO3 Sodium 138 Potassium 4.0 Chloride 104 Carbon Dioxide 25 Anion Gap 10 BUN 13 Creatinine 0.8 Creat Clearance w eGFR > 60 Random Glucose 81 Lactic Acid Calcium 11.0 H Phosphorus Magnesium Total Bilirubin 0.3 AST 37 ALT 51 Alkaline Phosphatase 102 Troponin I < 0.02 Total Protein 7.3 Albumin 3.9 Urine Color Urine Appearance Urine pH Ur Specific [place] Urine Protein Urine Glucose (UA) Urine Ketones Urine Blood Urine Nitrite Urine Bilirubin Urine Urobilinogen Ur Leukocyte Esterase Influenza A (Rapid) Influenza B (Rapid) 07/07/18 07/07/18 07/07/18 19:26 19:32 19:32 WBC RBC Hgb Hct MCV MCH MCHC RDW Plt Count MPV Absolute Neuts (auto) Neutrophils % Lymphocytes % Monocytes % Eosinophils % Basophils % Nucleated RBC % PT with INR INR PTT (Actin FS) VBG pH 7.44 H POC VBG pCO2 38.3 POC VBG pO2 24.1 L Mixed VBG HCO3 25.6 H Sodium Potassium Chloride Carbon Dioxide Anion Gap BUN Creatinine Creat Clearance w eGFR Random Glucose Lactic Acid 1.1 Calcium Phosphorus Magnesium Total Bilirubin AST ALT Alkaline Phosphatase Troponin I Total Protein Albumin Urine Color Urine Appearance Urine pH Ur Specific [place] Urine Protein Urine Glucose (UA) Urine Ketones Urine Blood Urine Nitrite Urine Bilirubin Urine Urobilinogen Ur Leukocyte Esterase Influenza A (Rapid) Positive A Influenza B (Rapid) Negative 07/08/18 07/08/18 07/08/18 00:41 06:00 06:00 WBC 4.4 RBC 4.02 Hgb 12.1 Hct 37.5 MCV 93.2 MCH 30.0 MCHC 32.2 RDW 13.7 Plt Count 160 MPV 8.6 Absolute Neuts (auto) 2.9 Neutrophils % 65.7 Lymphocytes % 20.4 D Monocytes % 13.3 H Eosinophils % 0.0 Basophils % 0.6 Nucleated RBC % 0 PT with INR INR PTT (Actin FS) VBG pH POC VBG pCO2 POC VBG pO2 Mixed VBG HCO3 Sodium 140 Potassium 3.7 Chloride 109 H Carbon Dioxide 22 Anion Gap 9 BUN 14 Creatinine 0.6 Creat Clearance w eGFR > 60 Random Glucose 66 L Lactic Acid Calcium 9.8 Phosphorus 3.0 Magnesium 2.4 Total Bilirubin 0.3 AST 29 ALT 39 Alkaline Phosphatase 77 Troponin I Total Protein 5.6 L Albumin 2.9 L Urine Color Ltyellow Urine Appearance Clear Urine pH 6.0 Ur Specific [place] 1.013 Urine Protein Negative Urine Glucose (UA) Negative Urine Ketones 1+ H Urine Blood Negative Urine Nitrite Negative Urine Bilirubin Negative Urine Urobilinogen Negative Ur Leukocyte Esterase Negative Influenza A (Rapid) Influenza B (Rapid) S1 S2 RRR Lungs decreased, ronchi+ Abd- soft, NT No edema PLAN IV fluids taper steroids nebs Tamiflu IV antibiotics ID eval check urine antigens Problem List - Problems (1) Asthma exacerbation Code(s): J45.901 - UNSPECIFIED ASTHMA WITH (ACUTE) EXACERBATION (2) Pneumonia and influenza Code(s): J11.00 - FLU DUE TO UNIDENTIFIED FLU VIRUS W UNSP TYPE OF PNEUMONIA (3) Fatigue Code(s): R53.83 - OTHER FATIGUE
--- NOTE | 2018-07-08 12:45 | EKG ---
Test Reason : Blood Pressure : / mmHG Vent. Rate : 084 BPM Atrial Rate : 084 BPM P-R Int : 146 ms QRS Dur : 090 ms QT Int : 316 ms P-R-T Axes : 035 000 055 degrees QTc Int : 373 ms POOR DATA QUALITY, INTERPRETATION MAY BE ADVERSELY AFFECTED NORMAL SINUS RHYTHM NONSPECIFIC T WAVE ABNORMALITY ABNORMAL ECG WHEN COMPARED WITH ECG OF 14-MAY-2018 08:38, T WAVE INVERSION NO LONGER EVIDENT IN ANTERIOR LEADS Confirmed by YOHANA LIZ MD ([id number]) on 07/08/2018 12:45:06 PM Referred By: Confirmed By:YOHANA LIZ MD
[2018-07-08] MEDS: methylPREDNISolone NA SUCC 40 MG/1 ML VIAL IVPUSH SCH ×3 (13:15→20:34)
[2018-07-08] MEDS: ALBUTEROL SO4 0.083% IH SOL 2.5 MG/3 ML VIAL.NEB. NEB PRN ×2 (13:30→17:30)
[2018-07-08] MEDS: MONTELUKAST NA 10 MG TABLET PO SCH ×2 (20:58→21:00)
[2018-07-09] MEDS: methylPREDNISolone NA SUCC 40 MG/1 ML VIAL IVPUSH SCH ×3 (02:26→21:57)
[2018-07-09] MEDS: LACTATED RINGERS SOLUTION 1,000 ML IV SCH (06:03)
[2018-07-09] MEDS: CEFTRIAXONE 1 GM in DEXTROSE 5%-WATER - 50 ML IVPB SCH (08:34)
[2018-07-09] MEDS ORDERED: cefTRIAXone SODIUM 1 GM VIAL ONE (08:45)
[2018-07-09] MEDS ORDERED: DEXTROSE 5%-WATER - 50 ML IVPB ONE (08:45)
[2018-07-09] MEDS: ENOXAPARIN NA (PORCINE) 40 MG/0.4 ML DISP.SYRIN SQ SCH (09:34)
[2018-07-09] MEDS: OSELTAMIVIR PHOSPHATE 75 MG CAPSULE PO SCH ×2 (09:34→21:58)
[2018-07-09] MEDS: ACETAMINOPHEN 325 MG TABLET (FP) PO PRN (09:42)
--- NOTE | 2018-07-09 11:13 | PN ---
Progress Note (short form) - Note Progress Note: ID CONSULT DICTATED ACUTE INFLUENZA ACUTE EXACERBATION COPD COMPLETE 5D COURSE TAMIFLU OK TO D/C ANTIBIOTICS
--- NOTE | 2018-07-09 11:28 | PN ---
Progress Note, Physician History of Present Illness: pt seen/ examined chart reviewed awake/ comfortable feels better afebrile - Current Medication List Current Medications: Active Medications Acetaminophen (Tylenol -) 650 mg PO Q4H PRN PRN Reason: FEVER Last Admin: 07/09/18 09:42 Dose: 650 mg Albuterol Sulfate (Ventolin 0.083% Nebulizer Soln -) 1 amp NEB Q4H PRN PRN Reason: SHORT OF BREATH/WHEEZING Last Admin: 07/08/18 17:30 Dose: 1 amp Enoxaparin Sodium (Lovenox -) 40 mg SQ DAILY [facility] Last Admin: 07/09/18 09:34 Dose: 40 mg Lactated Ringer's (Lactated Ringers Solution) 1,000 mls @ 100 mls/hr IV ASDIR [facility] Last Admin: 07/09/18 06:03 Dose: 100 mls/hr Ceftriaxone Sodium 1 gm/ (Dextrose) 50 mls @ 100 mls/hr IVPB DAILY@0800 [facility] Last Admin: 07/09/18 08:34 Dose: 100 mls/hr Methylprednisolone Sodium Succinate (Solu-Medrol -) 40 mg IVPUSH BID [facility] Montelukast Sodium (Singulair -) 10 mg PO HS [facility] Last Admin: 07/08/18 21:00 Dose: Not Given Oseltamivir Phosphate (Tamiflu -) 75 mg PO BID [facility] Stop: 07/13/18 09:59 Last Admin: 07/09/18 09:34 Dose: 75 mg - Objective Vital Signs: Vital Signs Temperature 98.6 F 07/09/18 05:00 Pulse Rate 72 07/09/18 05:00 Respiratory Rate 20 07/09/18 05:00 Blood Pressure 127/62 07/09/18 05:00 O2 Sat by Pulse Oximetry (%) 98 07/08/18 10:00 Constitutional: Yes: No Distress, Calm Eyes: Yes: Conjunctiva Clear HENT: No: Tonsillar Exudate Neck: Yes: Supple Respiratory: Yes: Rhonchi Gastrointestinal: Yes: Soft Edema: No Neurological: Yes: Alert Psychiatric: Yes: Alert Labs: CBC, BMP 07/08/18 06:00 07/08/18 06:00 INR, PTT INR 1.09 (0.83-1.09) 07/07/18 19:26 - ....Imaging Chest X-ray: Report Reviewed Cat Scan: Report Reviewed Assessment/Plan better i/d consult noted/ appreciated. agree with d/c abx droplet precautions taper steroids-- short course pt overall better anticipate d/c tomorrow will follow I also counselled pt to get flu shot-- pt did not get this year .
--- NOTE | 2018-07-09 13:36 | CONS ---
DATE OF CONSULTATION: DATE OF DICTATION: 07/09/2018 HISTORY: The patient is a 63-year-old female who was evaluated for acute influenza. She presented to the hospital on July 07, 2018 with a 2-day history of fever, cough productive of whitish sputum, shortness of breath, and pleuritic-type chest pain. She presented to the emergency room where she was evaluated. She was noted to have a temperature of 102.6. Cultures were obtained. An influenza swab was done and was positive for influenza A. Chest x-ray was negative for acute infiltrate. CAT scan shows left basilar atelectasis. At the present time, she is feeling better. She received Tamiflu and IV antibiotics. The patient recently returned from a visit to [place]. She reports being in contact with multiple persons with respiratory tract illnesses. She did not receive influenza vaccine. PAST MEDICAL HISTORY: Positive for bronchial asthma, hypertension. ALLERGIES: MORPHINE. MEDICATIONS: Include Tylenol, albuterol, ceftriaxone, Lovenox, methylprednisolone, Tamiflu. SOCIAL HISTORY: She resides at home with family members. She is a nonsmoker. Recent travel to [place]. SYSTEMS REVIEW: Neurologic: No loss of consciousness, seizure activity, focal weakness. Cardiac: Negative chest pain or palpitations. Respiratory: As per HPI. Gastrointestinal: Negative vomiting or diarrhea. Genitourinary: Negative for urinary tract infection. LABORATORY DATA: White count 4.4 with 65 neutrophils, 20 lymphocytes, 13 monocytes, hematocrit 37.5, platelets 160, BUN 14, creatinine 0.6. Liver enzymes normal. Urinalysis negative. Influenza swab positive for influenza A. Blood cultures preliminarily negative. PHYSICAL EXAMINATION: General: She is awake and alert. She is not acutely toxic appearing in no acute distress. Vital Signs: Temperature 98.6, T-max 102.6, blood pressure 127/62, pulse 72 and regular, respirations 20 per minute. HEENT: Sclerae anicteric. Heart: S1, S2. Lungs: Scattered rhonchi and mild wheeze bilaterally. No rales. Abdomen: Soft. No tenderness elicited. No mass, rebound, or rigidity. Extremities: Negative for edema. IMPRESSION: 1. Acute influenza A. 2. Acute exacerbation of chronic obstructive pulmonary disease. PLAN: Continue Tamiflu. Complete 5-day course. Okay to discontinue antibiotics. Continue bronchodilators, steroids. Thank you for the kind referral. YODIT CORTEZ M.D. [id number]
[2018-07-09] MEDS: MONTELUKAST NA 10 MG TABLET PO SCH (21:57)
[2018-07-09] MEDS ORDERED: RANITIDINE HCL 150 MG TABLET (FP) PO ONE (22:19)
[2018-07-10] MEDS: LACTATED RINGERS SOLUTION 1,000 ML IV SCH (02:07)
[2018-07-10] MEDS ORDERED: DEXTROSE 5%-WATER - 50 ML IVPB ONE (07:31)
[2018-07-10] MEDS ORDERED: cefTRIAXone SODIUM 1 GM VIAL ONE (07:31)
[2018-07-10] MEDS: ACETAMINOPHEN 325 MG TABLET (FP) PO PRN (07:43)
[2018-07-10] MEDS: CEFTRIAXONE 1 GM in DEXTROSE 5%-WATER - 50 ML IVPB SCH (07:45)
[2018-07-10] MEDS: methylPREDNISolone NA SUCC 40 MG/1 ML VIAL IVPUSH SCH (09:50)
[2018-07-10] MEDS: OSELTAMIVIR PHOSPHATE 75 MG CAPSULE PO SCH (09:50)
[2018-07-10] MEDS: ENOXAPARIN NA (PORCINE) 40 MG/0.4 ML DISP.SYRIN SQ SCH (09:50)
[2018-07-10 11:04] VITALS: BP 127/80; PULSE 56; TEMP 98.5
--- NOTE | 2018-07-10 12:08 | DS ---
Physical Examination Vital Signs: Vital Signs Temperature 98.5 F 07/10/18 09:00 Pulse Rate 56 L 07/10/18 09:00 Respiratory Rate 20 07/10/18 09:00 Blood Pressure 127/80 07/10/18 09:00 O2 Sat by Pulse Oximetry (%) 95 07/10/18 09:00 Findings/Remarks: much better no issues Constitutional: Yes: No Distress, Calm Eyes: Yes: Conjunctiva Clear Neck: Yes: Supple Cardiovascular: Yes: Regular Rate and Rhythm Respiratory: Yes: CTA Bilaterally Gastrointestinal: Yes: Soft Edema: No Neurological: Yes: Alert Labs: CBC, BMP 07/08/18 06:00 07/08/18 06:00 Discharge Summary Reason For Visit: INFLUENZA WITH PNEUMONIA Current Active Problems Asthma exacerbation (Acute) Pneumonia and influenza (Acute) Hospital Course: admitted due to Influenza and possible pneumonia treated with steroids / abx / tamiflu much better d/c today -- on tamiflu -- complete 5 day course-- send to pharmacy d/c steroids/abx pt in agreement f/u with her pmd Dr. Agrawal - one week Condition: Stable - Instructions Referrals: Geovany Ingram MD [Primary Care Provider] - Disposition: HOME - Home Medications Comprehensive Discharge Medication List: Ambulatory Orders Albuterol 0.083% Nebulizer Anjana [Ventolin 0.083% Nebulizer Soln -] 1 amp NEB PRN #5 amp 05/14/18 Montelukast Na [Singulair -] 10 mg PO DAILY 07/08/18 Acetaminophen [Tylenol .Regular Strength -] 650 mg PO Q4H PRN tablet 07/10/18 Oseltamivir Phosphate [Tamiflu -] 75 mg PO BID #6 capsule 07/10/18
== END 2018-07-10 14:55 | disposition home or self-care (01) | DRG 190 ==
LOC: JER 18:03 → JERBED 22:41 → J8W 07-08 02:34
PROVIDERS: ADMIT Internal Medicine; ATTEND Internal Medicine
DX: J44.1 Chronic obstructive pulmonary disease with (acute) exacerbation (principal); J11.00 Influenza due to unidentified influenza virus with unspecified type of pneumonia; J45.901 Unspecified asthma with (acute) exacerbation; R53.83 Other fatigue; E83.52 Hypercalcemia; I10 Essential (primary) hypertension
CPT/HCPCS: 36415; 71045-TC-FY; 71250-TC; 80053; 81003; 82803; 83605; 83735; 84100; 84484; 85025; 85610; 85730; 87040; 87804; 93005; 93010; 94640; 99283-25; J0131; J7030

== ENCOUNTER 2019-08-19 10:42 | Observation (INO) | payer BC ==
[2019-08-19 10:51] VITALS: BMI 26.5
[2019-08-19] MEDS ORDERED: SODIUM CHLORIDE 1,000 ML IV STA (12:15)
[2019-08-19] MEDS ORDERED: ACETAMINOPHEN 1000 MG/100 ML VIAL (NON FORMULARY) IVPB ONE (12:15)
[2019-08-19 12:36] LABS: BASO % 1.2 % (0-2.0); EOS % 1.7 % (0-4.5); HEMATOCRIT 38.5 % (32.4-45.2); LYMPH % 21.8 % (8-40); MCH 32.1 pg (25.7-33.7); MCHC 33.7 g/dl (32.0-36.0); MEAN CELL VOLUME 95.1 fl (80-96); MEAN PLT VOLUME 9.4 fl (7.5-11.1); MONO % 6.6 % (3.8-10.2); NEUT % 68.7 % (42.8-82.8); PLATELET COUNT 189 K/MM3 (134-434); RBC 4.04 M/mm3 (3.60-5.2); RDW 13.3 % (11.6-15.6); WHITE BLOOD COUNT 4.4 K/mm3 (4.0-10.0)
[2019-08-19] MEDS ORDERED: ACETAMINOPHEN INJECTION 100 ML IVPB ONE (12:36)
[2019-08-19 13:09] LABS: ALBUMIN 3.9 g/dl (3.4-5.0); BILIRUBIN,TOTAL 0.4 mg/dL (0.2-1); BLOOD UREA NITROGEN 13.4 mg/dL (7-18); CALCIUM 11.9 mg/dL (8.5-10.1); CREATININE 0.6 mg/dL (0.55-1.3); POTASSIUM 5.4 mmol/L (3.5-5.1); TOT PROT 7.2 g/dl (6.4-8.2)
--- NOTE | 2019-08-19 13:12 | PDOC ---
History of Present Illness - General Chief Complaint: Abnormal Lab Results (Outside) Stated Complaint: SENT BY PCP Time Seen by Provider: 08/19/19 11:23 - History of Present Illness Initial Comments: 08/19/19 13:07 64 yo F PMH parathyroidism over past year, asthma, influenza PNA June 2018, R shoulder surgery 10 years ago, presenting from PCP office due to elevated calcium level. Per patient, she has been having low grade right shoulder pain radiating down to her fingers over the past two weeks, but today it is the most severe it has been, 8/10, burning. Denies confusion, dizziness, urinary changes. Endorses R shoulder pain. Past History - Past Medical History Allergies/Adverse Reactions: Allergies Allergy/AdvReac Type Severity Reaction Status Date / Time morphine Allergy Severe Rash Verified 08/19/19 10:48 Home Medications: Ambulatory Orders Acetaminophen [Tylenol .Regular Strength -] 650 mg PO Q4H PRN 07/19/19 Albuterol 0.083% Nebulizer Anjana [Ventolin 0.083% Nebulizer Soln -] 1 amp NEB PRN PRN 07/19/19 Anemia: No Asthma: Yes COPD: No DVT: No GI Disorders: Yes (GASTRITIS-H. PYLORI) HTN: Yes Thyroid Disease: Yes - Surgical History Abdominal Surgery: Yes (hernia) Cardiac Surgery: Yes (angiogram) Orthopedic Surgery: Yes (rotator cuff) - Immunization History Immunization Up to Date: No - Psycho Social/Smoking Cessation Hx Smoking Status: No Smoking History: Never smoked Have you smoked in the past 12 months: No Number of Cigarettes Smoked Daily: 0 Information on smoking cessation initiated: No Hx Alcohol Use: No Drug/Substance Use Hx: No Substance Use Type: None Hx Substance Use Treatment: No Review of Systems - Review of Systems Comments:: 08/19/19 13:10 GENERAL/CONSTITUTIONAL: denies fever, chills, diaphoresis, generalized weakness , malaise, loss of appetite, weight change HEAD, EYES, EARS, NOSE AND THROAT: denies rhinorrhea, nasal congestion, throat pain, throat swelling, difficulty swallowing, mouth swelling, ear pain, eye pain , visual changes NEUROLOGIC: denies headache, focal weakness or paresthesias, dizziness, unsteady gait, seizure, mental status changes, bladder or bowel incontinence CARDIOVASCULAR: denies chest pain, syncope, palpitations, irregular heart rate, lightheadedness, peripheral edema RESPIRATORY: denies cough, shortness of breath, dyspnea with exertion, orthopnea , wheezing, stridor, hemoptysis GASTROINTESTINAL: denies abdominal pain, abdominal distension, nausea, vomiting , diarrhea, constipation, melena, hematochezia GENITOURINARY: denies dysuria, frequency, urgency, hesitancy, hematuria, flank pain, genital pain MUSCULOSKELETAL: endorses R shoulder pain limiting ROM. Denies myalgia, joint swelling, back pain, neck pain SKIN: denies rash, itching, pallor HEMATOLOGIC/IMMUNOLOGIC: denies easy bleeding, easy bruising, lymphadenopathy, frequent infections ENDOCRINE: denies unexplained weight gain, unexplained weight loss, heat intolerance, cold intolerance PSYCHIATRIC: denies anxiety, depression, suicidal or homicidal ideation, hallucinations *Physical Exam - Vital Signs Last Vital Signs Temp Pulse Resp BP Pulse Ox 98.2 F 52 L 18 119/60 98 08/19/19 10:48 08/19/19 10:48 08/19/19 10:48 08/19/19 10:48 08/19/19 10:48 - Physical Exam 08/19/19 13:11 Gen: well-developed, well-nourished, NAD Neuro: AAOX4, CN II-XII intact, FTN intact, EOMI, PERRLA, 5/5 strength, SILT HEENT: atraumatic, normocephalic Neck: trachea midline, supple CV: bradycardic, regular rhythm, no murmurs, rubs, or gallops Pulm: CTA b/l, no wheezing Abd: soft, non-distended, non-tender MSK: limited ROM in R shoulder 2/2 pain, intact pulses Extr: no edema, no deformities Skin: warm, dry ED Treatment Course - LABORATORY CBC & Chemistry Diagram: 08/19/19 12:15 08/20/19 05:25 - ADDITIONAL ORDERS Additional order review: Laboratory Results 08/19/19 12:15 Creatine Kinase 88 Troponin I < 0.02 08/19/19 12:15 RBC 4.04 MCV 95.1 MCHC 33.7 RDW 13.3 MPV 9.4 Neutrophils % 68.7 Lymphocytes % 21.8 Monocytes % 6.6 Eosinophils % 1.7 D Basophils % 1.2 - Medications Given in the ED: ED Medications Discontinued Medications Generic Name Dose Route Start Last Admin Trade Name Penny PRN Reason Stop Dose Admin Acetaminophen 1,000 mg 08/19/19 12:15 08/19/19 13:01 Ofirmev Injection - IVPB 08/19/19 12:16 1,000 mg ONCE ONE Administration Medical Decision Making - Medical Decision Making 08/19/19 13:12 Concern for hypercalcemia vs neoplasm vs fracture. - CBC, CMP - PTH and calcium - Ofirmev - 1L NS - CXR, R shoulder X-ray 08/19/19 13:45 Ca 11.9. EKG normal sinus at 63 bpm with T wave inversions in V1-V3 which were not present in 2019 EKG; however, trop negative. 08/19/19 14:[address] Ingram. States that his concern was calcium around 12 ; wanted to ensure that patient was save, and recommends contact with Dr. 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 Currently no specific parathyroidectomy or other definitive procedure planned. PTH normal at 87 two days ago outpatient, yet Ca at that time was 12.3. Will admit for further workup of hypercalcemia. Discharge - Discharge Information Problems reviewed: Yes Clinical Impression/Diagnosis: Hypercalcemia Condition: Guarded Disposition: AGAINST MEDICAL ADVICE - Follow up/Referral - Patient Discharge Instructions - Post Discharge Activity
--- NOTE | 2019-08-19 15:53 | PDOC ---
Documentation entered by Nirmala Lira SCRIBE, acting as scribe for Julius Rodrigues MD. Julius Rodrigues MD: This documentation has been prepared by the Pankaj gonzalez Adrianna, SCRIBE, under my direction and personally reviewed by me in its entirety. I confirm that the documentation accurately reflects all work, treatment, procedures, and medical decision making performed by me. Attending Attestation - Resident Resident Name: Deb Posada - ED Attending Attestation I have performed the following: I have examined & evaluated the patient, The case was reviewed & discussed with the resident, I agree w/resident's findings & plan, Exceptions are as noted - HPI HPI: The patient is a 64 year old female, with a significant PMH of asthma, influence PNA (one year ago), H. Pylori, and hypertension, who presents to the ED for evaluation of abnormal lab results. Patient was sent from her PCP to the ED for hypercalcemia. Patient endorses right shoulder pain that radiates down her RUE to her fingers for the past 2 weeks. She notes the pain is significantly worse today, and describes it as severe, burning, and an 8/10. Allergies: Morphine Surgical History: abdominal hernia repair, angiogram, and rotator cuff repair Social History: Denies EtOH, tobacco, or illicit drug use PCP: Dr. Ingram - Physicial Exam PE: 08/19/19 15:53 Vitals: Triage Vital signs reviewed General Appearance: No acute distress, well nourished well developed, Cardiac: Regular rate and rhythym, no murmurs, no rubs, no gallops, Lungs: Clear to auscultation bilateral, good air movement bilaterally, Abdomen: Soft, non distended, normal bowel sounds, non tender to palpation Extremities: Full range of motion to all extremities, no cyanosis, clubbing, or edema Skin: Warm and dry, no rashes or lesions, no rash, no petechiae Psych: Normal mood, normal affect - Medical Decision Making 64 year old female, with history of asthma, H. Pylori, and hypertension, presenting with abnormal labs and body aches Plan : labs, ECG, CXR, XR shoulder, acetaminophen, ofirmev, NS, reassess EXAM#: TYPE/EXAM: RESULT: [id number] RAD/SHOULDER-RIGHT X ray shoulder: Indication: Limited range of motion IMPRESSION: No evidence of acute fracture or subluxation. Findings suggestive of underlying rotator cuff injury are noted. Reported By: Paulino Hoffmann MD 08/19/19 14:28 EXAM#: TYPE/EXAM: RESULT: [id number] RAD/CHEST PA LAT Chest: Admission. Cough. 2 views of the chest reveal clear well-aerated lungs, large heart, normal aorta and normal ad. Angles are sharp. The bones and soft tissues are intact. Since the prior study of 07/07/2018 there is a better inspiration and no sign of an acute process. Reported By: Toro Marquez MD 08/19/19 14:28 64 years old with history of questionable hyperparathyroidism sent into the emergency department for admission for work-up of elevated calcium Patient with signs and symptoms consistent of hypercalcemia body aches fatigue bone pain EKG within normal limits troponin negative We will admit to medicine for further work-up.
[2019-08-19] MEDS ORDERED: ACETAMINOPHEN 325 MG TABLET (FP) PO PRN (17:47)
[2019-08-19] MEDS ORDERED: ALBUTEROL SO4 0.083% IH SOL 2.5 MG/3 ML VIAL.NEB. NEB PRN (17:47)
--- NOTE | 2019-08-19 17:59 | HP ---
Admitting History and Physical - Primary Care Physician PCP: Geovany Ingram - Admission History of Present Illness: dictated - Smoking History Smoking history: Never smoked Have you smoked in the past 12 months: No Aproximately how many cigarettes per day: 0 - Alcohol/Substance Use Hx Alcohol Use: No Home Medications - Allergies Allergies/Adverse Reactions: Allergies Allergy/AdvReac Type Severity Reaction Status Date / Time morphine Allergy Severe Rash Verified 08/19/19 10:48 - Home Medications Home Medications: Ambulatory Orders Acetaminophen [Tylenol .Regular Strength -] 650 mg PO Q4H PRN 07/19/19 Albuterol 0.083% Nebulizer Anjana [Ventolin 0.083% Nebulizer Soln -] 1 amp NEB PRN PRN 07/19/19 Physical Examination Vital Signs: Vital Signs Temperature 98.2 F 08/19/19 10:48 Pulse Rate 52 L 08/19/19 10:48 Respiratory Rate 18 08/19/19 10:48 Blood Pressure 119/60 08/19/19 10:48 O2 Sat by Pulse Oximetry (%) 98 08/19/19 10:48 Labs: CBC, BMP 08/19/19 12:15 08/19/19 12:15
[2019-08-19] MEDS ORDERED: SODIUM CHLORIDE 1,000 ML IV SCH (18:00)
[2019-08-19] MEDS ORDERED: HEPARIN NA (PORCINE) 5,000 UNITS/ML 1ML VIAL ONE (20:58)
[2019-08-19] MEDS: HEPARIN NA (PORCINE) 5,000 UNITS/ML 1ML VIAL SQ SCH (22:04)
[2019-08-20] MEDS ORDERED: ACETAMINOPHEN 325 MG TABLET (FP) ONE (00:35)
--- NOTE | 2019-08-20 06:46 | HP ---
DATE OF ADMISSION: 08/19/2019 HISTORY OF PRESENT ILLNESS: This patient is a 64-year-old lady, is being kept to the hospital for observation as sent by her PMD, Dr. Ingram, for elevated calcium levels. Patient's calcium level is noted to be above 12 in the PMD's office. Patient blood work done in the emergency room showed calcium of 11.9 and PTH level is pending, and patient is being kept to the hospital for observation and for further management. PAST MEDICAL HISTORY: Significant for hypercalcemia secondary to parathyroid. Patient tells me she is being followed by her manager project, Dr. Boo, for the same for some time. Patient also tells me surgery was planned for the right knee but was postponed due to high calcium levels. Patient other past medical history significant for right shoulder pain for some time. Patient's other past medical history significant for Helicobacter pylori in the past. MEDICATIONS: At home are Tylenol p.r.n. and Ventolin inhaler p.r.n. ALLERGIES: Patient has allergies to MORPHINE. REVIEW OF SYSTEMS: Positive for the right shoulder pain which is chronic, and x-ray done in the emergency room showed possible rotator cuff injury. Patient seen by me in the emergency room, chart is reviewed. I also discussed case with emergency room physician. PHYSICAL EXAMINATION: General: On exam, awake and comfortable. Not in distress. Patient's son is at bedside. Vital Signs: Blood pressure is 119/60, pulse 52, respirations 14. She is afebrile. Neck: Supple. Thyroid not enlarged. HEENT: Pupils are corrected to light and accommodation. Heart: Heart sounds are regular. Abdomen: Soft, nontender. Extremities: No edema. Limited range of motion on right shoulder secondary to pain. Neurological: Nonfocal. LABORATORY: Blood work done in the emergency room: CBC essentially normal. Electrolytes essentially normal except calcium 11.9, PTH is pending. Troponin negative. EKG nonspecific changes. Chest x-rays are unremarkable, too. ASSESSMENT: Patient is a 64-year-old female with past medical history of hypercalcemia secondary to parathyroid hormone, is being admitted for elevated calcium levels. PLAN: Is IV fluids. Will request her manager project, Dr. Boo, to follow. Monitor electrolytes. I will also request Dr. Huerta to see patient due to right shoulder pain and rotator cuff injury. Further recommendations will be followed by clinical course. Hortensia TORRES/[id number]
[2019-08-20 07:11] VITALS: BP 111/73; PULSE 64; TEMP 97.8
[2019-08-20 08:20] LABS: ALBUMIN 3.4 g/dl (3.4-5.0); BILIRUBIN,TOTAL 0.4 mg/dL (0.2-1); BLOOD UREA NITROGEN 12.7 mg/dL (7-18); CALCIUM 11.7 mg/dL (8.5-10.1); CREATININE 0.7 mg/dL (0.55-1.3); POTASSIUM 4.3 mmol/L (3.5-5.1); TOT PROT 5.8 g/dl (6.4-8.2)
--- NOTE | 2019-08-20 12:10 | DS ---
Physical Examination Vital Signs: Vital Signs Temperature 97.8 F 08/20/19 07:10 Pulse Rate 64 08/20/19 07:10 Respiratory Rate 18 08/20/19 07:10 Blood Pressure 111/73 08/20/19 07:10 O2 Sat by Pulse Oximetry (%) 98 08/20/19 07:10 Findings/Remarks: awake/ comfortable no complains family at bedside all wants to sign out ama and leave now dont want to stay - says will follow with hr pmd discussed in detail -- risks of elevated calcium levels including but not limited to cardiac arrest/ - says understands Constitutional: Yes: No Distress, Calm Cardiovascular: Yes: Regular Rate and Rhythm Respiratory: Yes: CTA Bilaterally Gastrointestinal: Yes: Soft Edema: No Neurological: Yes: Alert Psychiatric: Yes: Alert Labs: CBC, BMP 08/19/19 12:15 08/20/19 05:25 Discharge Summary Reason For Visit: HYPERCALCEMIA Hospital Course: ADMITTED FOR HYPERCALCEMIA-LIKELY PTH RELATED PER HISTORY PTH LEVEL PENDING ENDO CONSULT PENDING PT SIGNING OUT AMA D/W RN ALSO Condition: Guarded - Instructions Referrals: Geovany Ingram MD [Primary Care Provider] - Disposition: AGAINST MEDICAL ADVICE - Home Medications Comprehensive Discharge Medication List: Ambulatory Orders Acetaminophen [Tylenol .Regular Strength -] 650 mg PO Q4H PRN 07/19/19 Albuterol 0.083% Nebulizer Anjana [Ventolin 0.083% Nebulizer Soln -] 1 amp NEB PRN PRN 07/19/19
[2019-08-20] MEDS: HEPARIN NA (PORCINE) 5,000 UNITS/ML 1ML VIAL SQ SCH (14:10)
--- NOTE | 2019-08-21 09:58 | EKG ---
Test Reason : Blood Pressure : / mmHG Vent. Rate : 063 BPM Atrial Rate : 063 BPM P-R Int : 166 ms QRS Dur : 094 ms QT Int : 384 ms P-R-T Axes : 011 012 054 degrees QTc Int : 392 ms NORMAL SINUS RHYTHM T WAVE ABNORMALITY, CONSIDER ANTERIOR ISCHEMIA ABNORMAL ECG WHEN COMPARED WITH ECG OF 07-JUL-2018 23:40, T WAVE INVERSION NOW EVIDENT IN ANTERIOR LEADS NONSPECIFIC T WAVE ABNORMALITY, IMPROVED IN LATERAL LEADS Confirmed by YOHANA LIZ MD ([id number]) on 08/21/2019 9:57:54 AM Referred By: Confirmed By:YOHANA LIZ MD
== END 2019-08-20 11:33 | disposition left against medical advice (07) ==
LOC: JER 10:42 → JERBED 14:49 → INTOOBSV 14:49
PROVIDERS: ADMIT Internal Medicine; ATTEND Internal Medicine
PROC: 3E033GC Introduction of Other Therapeutic Substance into Peripheral Vein, Percutaneous Approach (ICD-10-PCS; principal; 2019-08-19)
PROC: 3E0337Z Introduction of Electrolytic and Water Balance Substance into Peripheral Vein, Percutaneous Approach (ICD-10-PCS; 2019-08-19)
DX: E83.52 Hypercalcemia (principal); I10 Essential (primary) hypertension; J45.909 Unspecified asthma, uncomplicated; E21.5 Disorder of parathyroid gland, unspecified; Z88.6 Allergy status to analgesic agent
CPT/HCPCS: 36415; 71046-TC-FY; 73030-TC-RT-FY; 80053; 82310; 82550; 83970; 84443; 84484; 85025; 93005; 93010; 96361; 96374; 99285-25; G0378; J0131; J1644; J7030

== ENCOUNTER 2021-08-23 14:42 | Emergency (ER) | payer BC, OTHER ==
[2021-08-23 14:56] VITALS: BP 133/69; PULSE 75; TEMP 98; BMI 26.9
[2021-08-23] MEDS ORDERED: LORazepam 2 MG/ML SDV VIAL IVPUSH ONE (15:47)
[2021-08-23 16:24] LABS: BASO % 0.7 % (0-2.0); EOS % 0.7 % (0-4.5); HEMATOCRIT 40.1 % (32.4-45.2); HEMOGLOBIN 13.3 GM/dL (10.7-15.3); LYMPH % 15.5 % (8-40); MCH 31.8 pg (25.7-33.7); MCHC 33.3 g/dl (32.0-36.0); MEAN CELL VOLUME 95.6 fl (80-96); MEAN PLT VOLUME 8.8 fl (7.5-11.1); NEUT % 79.1 % (42.8-82.8); PLATELET COUNT 205 10^3/uL (134-434); RBC 4.19 M/mm3 (3.60-5.2); RDW 13.6 % (11.6-15.6); WHITE BLOOD COUNT 5.8 K/mm3 (4.0-10.0)
[2021-08-23 16:25] LABS: PH,URINE 6.5 (5.0-8.0); URINE APPEARANCE CLEAR; URINE BILIRUBIN NEGATIVE (NEGATIVE); URINE COLOR YELLOW; URINE GLUCOSE (UA) NEGATIVE (NEGATIVE); URINE KETONE NEGATIVE (NEGATIVE); URINE LEUK ESTERASE NEGATIVE (NEGATIVE); URINE NITRITE NEGATIVE (NEGATIVE); URINE PROTEIN NEGATIVE (NEGATIVE); URINE UROBILINOGEN 0.2 mg/dL (0.2-1.0)
[2021-08-23 16:43] LABS: CALCIUM 12.6 mg/dL (8.5-10.1)
[2021-08-23 16:45] LABS: ALBUMIN 4.5 g/dl (3.4-5.0); BLOOD UREA NITROGEN 10.8 mg/dL (7-18)
[2021-08-23 16:48] LABS: CREATININE 0.7 mg/dL (0.55-1.3)
[2021-08-23 16:49] LABS: BILIRUBIN,TOTAL 0.4 mg/dL (0.2-1); TOT PROT 7.5 g/dl (6.4-8.2)
== END 2021-08-23 18:14 | disposition home or self-care (01) ==
LOC: JER 14:42
PROC: 3E033NZ Introduction of Analgesics, Hypnotics, Sedatives into Peripheral Vein, Percutaneous Approach (ICD-10-PCS; principal; 2021-08-23)
DX: F41.9 Anxiety disorder, unspecified (principal)
CPT/HCPCS: 36415; 71046-TC-FY; 80053; 81003; 85025; 87086; 93005; 93010; 99284-25

== ENCOUNTER 2022-05-24 11:05 | Emergency (ER) | payer OTHER ==
[2022-05-24 11:11] VITALS: BMI 25.4
[2022-05-24] MEDS ORDERED: ACETAMINOPHEN 1000 MG/100 ML BAG IVPB ONE (12:39)
[2022-05-24] MEDS ORDERED: METOCLOPRAMIDE HCL INJECTION 10 MG/2 ML VIAL IVPUSH ONE (12:39)
[2022-05-24] MEDS ORDERED: diazePAM CARPU-JECT 10 MG/2 ML DISP.SYRIN IVPUSH ONE (12:39)
[2022-05-24 13:09] LABS: BASO % 0.9 % (0-2.0); EOS % 0.3 % (0-4.5); HEMATOCRIT 43.4 % (32.4-45.2); HEMOGLOBIN 14.8 GM/dL (10.7-15.3); LYMPH % 11.7 % (8-40); MCH 32.2 pg (25.7-33.7); MCHC 34.1 g/dl (32.0-36.0); MEAN CELL VOLUME 94.6 fl (80-96); MEAN PLT VOLUME 10.5 fl (7.5-11.1); MONO % 3.5 % (3.8-10.2); NEUT % 83.6 % (42.8-82.8); PLATELET COUNT 304 10^3/uL (134-434); RBC 4.59 M/mm3 (3.60-5.2); RDW 13.2 % (11.6-15.6)
[2022-05-24] MEDS ORDERED: METOCLOPRAMIDE HCL INJECTION 10 MG/2 ML VIAL ONE (13:28)
[2022-05-24] MEDS ORDERED: ACETAMINOPHEN INJECTION 100 ML IVPB ONE (13:28)
[2022-05-24 13:36] LABS: CHLORIDE 105 mmol/L (98-107); SODIUM 135 mmol/L (136-145)
[2022-05-24 13:38] LABS: CALCIUM 12.3 mg/dL (8.5-10.1); CO2 30 mmol/L (21-32); GLUCOSE,RANDOM 90 mg/dL (74-106)
[2022-05-24] MEDS ORDERED: SODIUM CHLORIDE 1,000 ML IV STA (13:40)
[2022-05-24 13:41] LABS: CREATININE 0.8 mg/dL (0.55-1.3)
[2022-05-24 13:43] LABS: TOT PROT 8.7 g/dl (6.4-8.2)
[2022-05-24 13:44] LABS: ALK PHOS 74 U/L (45-117)
[2022-05-24 13:47] LABS: ANION GAP 0 MMOL/L (8-16); SGOT/AST 132 U/L (15-37)
[2022-05-24 13:54] LABS: PH,URINE 7.5 (5.0-8.0); URINE APPEARANCE CLEAR; URINE BILIRUBIN NEGATIVE (NEGATIVE); URINE COLOR YELLOW; URINE GLUCOSE (UA) NEGATIVE (NEGATIVE); URINE KETONE NEGATIVE (NEGATIVE); URINE LEUK ESTERASE NEGATIVE (NEGATIVE); URINE NITRITE NEGATIVE (NEGATIVE); URINE PROTEIN NEGATIVE (NEGATIVE); URINE UROBILINOGEN 0.2 mg/dL (0.2-1.0)
[2022-05-24] MEDS ORDERED: ONDANSETRON 4 MG/2 ML VIAL IVPUSH ONE (16:16)
[2022-05-24] MEDS ORDERED: ONDANSETRON 4 MG/2 ML VIAL ONE (16:25)
[2022-05-24 18:21] VITALS: BP 133/72; PULSE 76; RESP 19; TEMP 98.6
== END 2022-05-24 16:55 | disposition left against medical advice (07) ==
LOC: JER 11:05
PROC: 3E0333Z Introduction of Anti-inflammatory into Peripheral Vein, Percutaneous Approach (ICD-10-PCS; principal; 2022-05-24)
PROC: 3E033NZ Introduction of Analgesics, Hypnotics, Sedatives into Peripheral Vein, Percutaneous Approach (ICD-10-PCS; 2022-05-24)
PROC: 3E033GC Introduction of Other Therapeutic Substance into Peripheral Vein, Percutaneous Approach (ICD-10-PCS; 2022-05-24)
PROC: 3E033GC Introduction of Other Therapeutic Substance into Peripheral Vein, Percutaneous Approach (ICD-10-PCS; 2022-05-24)
PROC: 3E0337Z Introduction of Electrolytic and Water Balance Substance into Peripheral Vein, Percutaneous Approach (ICD-10-PCS; 2022-05-24)
DX: F41.9 Anxiety disorder, unspecified (principal); R51.9 Headache, unspecified; R07.9 Chest pain, unspecified; R11.0 Nausea
CPT/HCPCS: 0241U-QW; 36415; 71046-TC-FY; 80053; 81003; 84132; 84484; 85025; 87077; 87086; 93005; 93010; 99285-25

== ENCOUNTER 2022-09-06 11:31 | Emergency (ER) | payer OTHER ==
[2022-09-06] MEDS ORDERED: LORazepam 2 MG/ML SDV VIAL IM ONE (11:45)
[2022-09-06 11:46] VITALS: BMI 22.8
[2022-09-06 13:19] VITALS: BP 105/61; PULSE 55; RESP 18; TEMP 98.6
== END 2022-09-06 14:20 | disposition home or self-care (01) ==
LOC: JER 11:31
PROC: 3E023NZ Introduction of Analgesics, Hypnotics, Sedatives into Muscle, Percutaneous Approach (ICD-10-PCS; principal; 2022-09-06)
DX: F41.0 Panic disorder [episodic paroxysmal anxiety] (principal)
CPT/HCPCS: 96372; 99284-25